=== PATIENT | female | born 1995 | race Caucasian/White ===

== ENCOUNTER 2017-05-23 11:23 | Emergency (ER) | payer OTHER ==
[~2017-05-23] VITALS: Ht 167.6 cm; Wt 80.1 kg
[2017-05-23 11:28] VITALS: TEMP 36.7; Ht 167.6 cm; Wt 80.1 kg
[2017-05-23] MEDS ORDERED: XYLOCAINE 1%/SOD BICARB 20 ML VIAL INFIL STA (11:42)
--- NOTE | 2017-05-23 12:00 | EMERGENCY ROOM VISIT NOTE ---
History Report prepared by Elli: Rosi Girard Under the Supervision of: Dr. Bandar Israel M.D. First contact with patient: 11:32 Chief Complaint: OTHER COMPLAINT Stated Complaint: BARTHOLIN CYST History of Present Illness The patient is a 21 year old female who presents to the Emergency Room with complaints of persistent vaginal pain that began Sunday evening. She currently rates her discomfort as a 7/10 in severity. The patient states that on Sunday she felt she developed Bartholin cyst. She denies any history of these. The patient states that on Sunday she began noticing pain and then Sunday and Sunday her pain worsened. She states that she felt that the area may have become infected. The patient denies any chance of or sexually transmitted infections due to never having intercourse. Source of History: patient Onset: Sunday Position: other (vaginal) Symptom Intensity: 7/10 Timing: worsening, other (persistent) Note: Associated Symptoms: Bartholin cyst Review of Systems See HPI for pertinent positives & negatives. A total of 10 systems reviewed and were otherwise negative. Past Medical & Surgical Surgical Problems: (1) [place] teeth extracted Family History Cancer Social History Smoking Status: Never Smoker Smokeless Tobacco Use: No Alcohol Use: occasionally Marital Status: single Occupation Status: [employer] student Current/Historical Medications Scheduled Metronidazole (Flagyl), 500 MG PO BID Norgestimate-Ethinyl Estradiol (Tri-Estarylla), 1 TAB PO DAILY Sulfa/Trimethoprim (Bactrim Ds 800MG/160MG), 1 TAB PO BID Scheduled PRN Oxycodone/Acetaminophen 5MG/325MG (Percocet 5MG/325MG), 1-2 TAB PO Q4H PRN for Pain Allergies Coded Allergies: No Known Allergies (Unverified , 05/23/17) Physical Exam Vital Signs Date Time Temp Pulse Resp B/P (MAP) Pulse Ox O2 Delivery O2 Flow Rate FiO2 05/23/17 12:31 84 18 134/98 99 05/23/17 11:28 36.7 85 18 137/85 98 Room Air Physical Exam GENERAL: Patient is a healthy-appearing well-nourished female HEAD: Normocephalic atraumatic EYES: Ocular movements intact pupils equal and react to light OROPHARYNX mucous membranes are moist no exudates present no erythema or edema present NECK: Supple no nuchal rigidity CHEST: Good equal expansion LUNGS: Clear and equal to auscultation CARDIAC: Normal S1 and S2 ABDOMEN: Soft nontender no guarding BACK: No CVA tenderness PELVIC: Bartholin cyst to the left labial fold that is the size of a nickel. EXTREMITIES: No pain upon palpation normal muscle strength in all groups no clubbing cyanosis or edema NEURO: Patient is following commands and answering questions appropriately. Alert and oriented x3 Cranial Nerves 2-12 grossly intact Medical Decision & Procedures Medications Administered Medications (Trade) Dose Ordered Sig/Antwon Route Start Time Stop Time Status Last Admin Dose Admin Lidocaine HCl (Buffered Lidocaine 1% Inj) 20 ml ONE STAT INFIL 05/23/17 11:42 05/23/17 11:44 DC 05/23/17 11:42 20 ML Oxycodone/ Acetaminophen (Percocet 5-325mg Tab) 2 tab NOW ONCE PO 05/23/17 12:15 05/23/17 12:16 DC 05/23/17 12:24 2 TAB Trimethoprim/ Sulfamethoxazole (Septra Ds 800/ 160MG Tab) 1 tab NOW STAT PO 05/23/17 12:11 05/23/17 12:14 DC 05/23/17 12:23 1 TAB Metronidazole (Flagyl Tab) 500 mg NOW STAT PO 05/23/17 12:11 05/23/17 12:14 DC 05/23/17 12:22 500 MG Procedure Incision & Drainage Indication: Abscess. Location: left labial fold Verbal consent was obtained after the risks and benefits were explained, including but not limited to bleeding, scarring, infection, pain, and bone/joint /nerve damage. At this time, the risks of the procedure are less than the risks of NOT performing the procedure. A time out was taken and the correct patient and site identified. The skin was prepped with betadine and a sterile field set. The wound was anesthetized with 6 ml of 1% lidocaine without epinephrine. The abscess cavity was entered with a number 11 blade and bloody, pustular material expressed. Tried to place a balloon, however it was unable to be placed. So cloth packing was placed The wound was explored for foreign bodies and none found. Debridement was not performed. Packing placed and a sterile dressing applied. Detailed wound care instructions and signs and symptoms of worsening infection reviewed with the patient. No complications and the patient tolerated the procedure well. ED Course 1142: Past medical records reviewed. The patient was evaluated in room C8. A complete history and physical examination was performed. I performed the I&D on the patient at this time. See procedure note for further detail. I discussed the exam findings with her and I discussed the treatment plan. She verbalized complete understanding and agreement. She is ready to go home. Ordered Lidocaine HCl 20 ml INFIL. 1211: Ordered Flagyl Tab 500 mg PO, Trimethoprim/Sulfamethoxazole 1 tab PO, Motrin Tab 600 mg PO. 1215: Ordered Oxycodone/Acetaminophen 2 tab PO. Medical Decision This is a 21-year-old female who presents emergency department complaining of a left Bartholin's cyst. Based on the patient's complaint been under nursing supervision of the cyst was drained as above. I attempted to place a balloon into the cyst however the patient did not tolerate this. For this reason cough packing was applied. I will placed patient on Bactrim and Flagyl. As the patient is not sexually active pending culture results. The patient was also given ibuprofen as well as Percocet for the pain. Patient was in agreement with the treatment plan. Medication Reconcilliation Current Medication List: was personally reviewed by me Impression Primary Impression: Bartholin's gland abscess Scribe Attestation The scribe's documentation has been prepared under my direction and personally reviewed by me in its entirety. I confirm that the note above accurately reflects all work, treatment, procedures, and medical decision making performed by me. Departure Information Dispostion Home / Self-Care Prescriptions Oxycodone/Acetaminophen 5MG/325MG (PERCOCET 5MG/325MG) Tab 1-2 TAB PO Q4H Y for Pain, #14 TAB Prov: Bandar Israel MD 05/23/17 Metronidazole (Flagyl) 500 Mg Tab 500 MG PO BID, #20 TAB Prov: Bandar Israel MD 05/23/17 Sulfa/Trimethoprim (Bactrim Ds 800MG/160MG) Tab 1 TAB PO BID for 10 Days, #20 TAB Prov: Bandar Israel MD 05/23/17 Referrals No Doctor, Assigned (PCP) Ciaran Caro ., DO Forms HOME CARE DOCUMENTATION FORM, IMPORTANT VISIT INFORMATION, WORK / SCHOOL INSTRUCTIONS Patient Instructions ED Bartholins Cyst Magy [facility] Additional Instructions Follow up with Dr Caro's office Remove packing within 48 hours DO NOT DRINK ALCOHOL WITH FLAGYL ANTIBIOTIC You received narcotic or benzodiazepene medication while in the emergency room today. This is an addictive medication that may cause drowziness as well as constipation. Do not drive, operate heavy machinery, or drink alcohol under the influence of this medication. Take 600 mg Ibuprofen every 6 hours Take Percocet for breakthrough pain Culture results are usually available in approx 48 hours You have been examined and treated today on an emergency basis only. This is not a substitute for, or an effort to provide, complete comprehensive medical care. It is impossible to recognize and treat all injuries or illnesses in a single emergency department visit. It is therefore important that you follow up closely with S. [facility] as soon as possible for an appointment. Thank you for your time and consideration. I look forward to speaking with you again soon. Please don't hesitate to call us if you have any questions.
[2017-05-23] MEDS ORDERED: SULFAMETHOXAZOLE/TRIMETHOPRIM DS 800/160MG TAB PO STA (12:11)
[2017-05-23] MEDS ORDERED: METRONIDAZOLE 250 MG TAB PO STA (12:11)
[2017-05-23] MEDS ORDERED: IBUPROFEN 600 MG TAB PO STA (12:11)
[2017-05-23] MEDS ORDERED: OXYCODONE/ACETAMINOPHEN 5-325 TAB PO ONE (12:15)
[2017-05-23] MEDS ORDERED: METR-163 PO (12:17)
[2017-05-23] MEDS ORDERED: OXYC-57 PO (12:17)
[2017-05-23] MEDS ORDERED: SULF800T23 PO (12:17)
[2017-05-23 12:31] VITALS: BP 134/98; PULSE 84; O2SAT 99
[2017-05-23] MEDS ORDERED: NORG1TAB23 PO (12:31)
--- NOTE | 2017-05-25 13:10 | Pharmacy Progress Note ---
ED Pharmacist Culture FollowUp Date of Service: May 25, 2017. Patient was sent home with a prescription for Bactrim, which should cover the MSSA growing from the patient's surface wound/vaginal culture. No anaerobes isolated, but Flagyl should also be continued as anaerobic growth is not persistently identified in cultures.
== END 2017-05-23 12:33 | disposition home or self-care (01) ==
LOC: C.EDB 11:26 → C.EDC 12:33
DX: N75.1 Abscess of Bartholin's gland (principal); Z80.9 Family history of malignant neoplasm, unspecified; Z79.899 Other long term (current) drug therapy